=== PATIENT | female | born 1955 | race Caucasian/White ===

== ENCOUNTER 2018-10-02 23:30 | Inpatient (IN) | payer MEDICAID ==
[~2018-10-02] VITALS: Ht 162.6 cm; Wt 86.2 kg
[~2018-10-02 23:30] MED LIST: ALLO100T PO; ALPR0.25 PO; ASPI-864 PO; ASPIRIN PO; CARV6.2548 PO; CARVEDILOL PO; COLC0.6T2 PO; HUMALOG SUBCUT; INSLAN SQ; LACT10SO PO; LASIX PO; SIMV20TA6 PO; XALAO LEFTEYE
[2018-10-03] MEDS ORDERED: ONDANSETRON HCL 4MG/2ML INJ IV STA (00:04)
[2018-10-03] MEDS ORDERED: MORPHINE SULFATE 4 MG/ML CPJ (NOT FOR IM USE) IV STA (00:04)
[2018-10-03 00:28] LABS: BASOPHILS % 0.7 % (0.0-2.0); EOSINOPHILS % 5.1 % (0.0-5.0); HEMATOCRIT. 36.5 % (36.0-48.0); HEMOGLOBIN. 11.9 g/dL (12.0-16.0); LYMPHOCYTES % 18.9 % (20.0-50.0); MEAN CORPUSCULAR HEMOGLOBIN 31.5 pg (28.0-32.0); MEAN PLATELET VOLUME 8.6 fl (7.4-10.4); MONOCYTES % 7.4 % (2.0-8.0); NEUTROPHILS % 67.9 % (40.0-76.0); PLATELET 226 x1000/uL (130-400); RED BLOOD CELL COUNT 3.76 mill/uL (4.2-5.4); RED CELL DISTRIBUTION WIDTH 15.7 % (11.6-14.6)
[2018-10-03 00:33] LABS: CHLORIDE 112 mEq/L (98-107)
[2018-10-03 00:57] LABS: CLARITY URINE CLEAR (CLEAR); COLOR URINE YELLOW (YELLOW); KETONES URINE NEGATIVE (NEGATIVE); LEUKOCYTE ESTERASE URINE TRACE (NEGATIVE); NITRITE URINE NEGATIVE (NEGATIVE); OCCULT BLOOD URINE NEGATIVE (NEGATIVE); PROTEIN URINE NEGATIVE (NEGATIVE); SPECIFIC GRAVITY URINE 1.009 (1.005-1.030); UROBILINOGEN URINE 0.2 E.U./dL (0.2-1.0)
[2018-10-03] MEDS ORDERED: SODIUM CHLORIDE 0.9% 1,000 ML IV NR (01:00)
[2018-10-03] MEDS ORDERED: LOSA50TA20 MT (09:55)
[2018-10-03] MEDS ORDERED: OMEP20CA10 MT (09:55)
[2018-10-03 10:24] VITALS: BP 119/48
[2018-10-03 12:00] VITALS: BP 128/53
[2018-10-03] MEDS ORDERED: REGADENOSON 0.4 MG/5 ML IV NR (12:15)
[2018-10-03] MEDS: ASPIRIN 81MG EC TABLET PO SCH (13:09)
[2018-10-03] MEDS: ENOXAPARIN 30MG/0.3ML SYR SUBCUT SCH (13:09)
[2018-10-03] MEDS: CLOPIDOGREL 75MG TABLET PO SCH (13:09)
[2018-10-03] MEDS ORDERED: DEXTROSE 50% WATER 50ML SYRINGE IV PRN (15:15)
[2018-10-03] MEDS ORDERED: ONDANSETRON HCL 4MG/2ML INJ IV PRN (15:15)
[2018-10-03 15:45] VITALS: BP 118/57
[2018-10-03] MEDS: OMEPRAZOLE 20MG CAPSULE EXTENDED RELEASE PO SCH (16:41)
[2018-10-03] MEDS: INSULIN LISPRO 100 UNITS/ML SUBCUT SCH ×3 (16:46→21:00)
[2018-10-03] MEDS: BLOOD SUGAR DIAGNOSTIC STRIP TEST SCH ×2 (16:46→21:22)
[2018-10-03 18:43] LABS: PHOSPHORUS 3.4 mg/dL (2.5-4.9)
[2018-10-03 18:44] LABS: LDL CHOLESTEROL 49 mg/dL (5-100)
[2018-10-03 18:45] LABS: CREATINE KINASE 68 IU/L (26-192); TOTAL IRON BINDING CAPACITY 285 ug/dL (250-450)
[2018-10-03 18:46] LABS: HDL CHOLESTEROL 39 mg/dL (40-59)
[2018-10-03 18:47] LABS: CREATINE KINASE MB FRACTION < 1.0 ng/mL (0.5-3.6)
[2018-10-03 18:55] LABS: FOLIC ACID (FOLATE) SERUM >20 ng/mL ng/mL (>5.38)
[2018-10-03 19:06] LABS: VITAMIN B12 SERUM < 60 pg/mL (211-911)
[2018-10-03 20:00] VITALS: BP 136/66
[2018-10-03] MEDS ORDERED: MORPHINE SULFATE 4 MG/ML CPJ (NOT FOR IM USE) IV PRN (20:36)
[2018-10-03] MEDS ORDERED: LATANOPROST 0.005% OPHTH DROPS 2.5ML LEFTEYE SCH (21:00)
[2018-10-03] MEDS ORDERED: ATORVASTATIN CALCIUM 40MG TABLET PO SCH (21:00)
[2018-10-03] MEDS: FUROSEMIDE 20MG TABLET PO SCH (21:32)
[2018-10-03] MEDS: INSULIN GLARGINE UD 100 UNITS/ML SYR SUBCUT SCH (21:32)
[2018-10-04] VITALS: BP 108/46
[2018-10-04 01:19] LABS: *AMPHETAMINES SCREEN URINE NEGATIVE (NEGATIVE); *BARBITURATES SCREEN URINE NEGATIVE (NEGATIVE); *BENZODIAZEPINES SCREEN URINE NEGATIVE (NEGATIVE); *COCAINE SCREEN URINE NEGATIVE (NEGATIVE); METHADONE URINE SCREEN NEGATIVE (NEGATIVE); OPIATES URINE SCREEN PRESUMTIVE POSITIVE (NEGATIVE)
[2018-10-04 01:20] LABS: CANNABINOID URINE SCREEN NEGATIVE (NEGATIVE); PHENCYCLIDINE URINE SCREEN NEGATIVE (NEGATIVE)
[2018-10-04 04:00] VITALS: BP 126/51
[2018-10-04] MEDS: INSULIN LISPRO 100 UNITS/ML SUBCUT SCH ×4 (06:17→12:20)
[2018-10-04] MEDS: OMEPRAZOLE 20MG CAPSULE EXTENDED RELEASE PO SCH (06:17)
[2018-10-04] MEDS: BLOOD SUGAR DIAGNOSTIC STRIP TEST SCH ×2 (06:17→11:46)
[2018-10-04 06:23] LABS: BASOPHILS % 0.7 % (0.0-2.0); EOSINOPHILS % 5.6 % (0.0-5.0); HEMOGLOBIN. 11.7 g/dL (12.0-16.0); LYMPHOCYTES % 25.4 % (20.0-50.0); MEAN CORPUSCULAR HEMOGLOBIN 31.6 pg (28.0-32.0); MEAN CORPUSCULAR VOLUME 96.9 fL (81.0-99.0); MONOCYTES % 7.5 % (2.0-8.0); NEUTROPHILS % 60.8 % (40.0-76.0); PLATELET 231 x1000/uL (130-400); RED BLOOD CELL COUNT 3.72 mill/uL (4.2-5.4); RED CELL DISTRIBUTION WIDTH 15.4 % (11.6-14.6)
[2018-10-04 08:00] VITALS: BP 135/67
[2018-10-04] MEDS ORDERED: REGADENOSON 0.4 MG/5 ML IV ONE (09:22)
[2018-10-04] MEDS: FUROSEMIDE 20MG TABLET PO SCH (10:37)
[2018-10-04] MEDS: ASPIRIN 81MG EC TABLET PO SCH (10:37)
[2018-10-04] MEDS: CLOPIDOGREL 75MG TABLET PO SCH (10:37)
[2018-10-04] MEDS: INSULIN GLARGINE UD 100 UNITS/ML SYR SUBCUT SCH (10:47)
[2018-10-04] MEDS: ENOXAPARIN 30MG/0.3ML SYR SUBCUT SCH (12:20)
[2018-10-04] MEDS ORDERED: LACTULOSE 20G/30ML UDC PO PRN (12:30)
[2018-10-04] MEDS ORDERED: ACETAMINOPHEN 325MG TABLET PO PRN (12:30)
[2018-10-04 13:52] VITALS: BP 130/65
[2018-10-05 14:44] LABS: FERRITIN 79 ng/mL (10-291)
== END 2018-10-04 14:25 | disposition home or self-care (01) | DRG 243 ==
LOC: ER 23:40 → 8WST 10-03 01:07 → ENRESERV 10-03 07:56
PROVIDERS: ADMIT Internal Medicine; ATTEND Internal Medicine
DX: K21.9 Gastro-esophageal reflux disease without esophagitis (principal); D72.1 Eosinophilia; E11.22 Type 2 diabetes mellitus with diabetic chronic kidney disease; I50.9 Heart failure, unspecified; I13.0 Hypertensive heart and chronic kidney disease with heart failure and stage 1 through stage 4 chronic kidney disease, or unspecified chronic kidney disease; N18.4 Chronic kidney disease, stage 4 (severe); I48.0 Paroxysmal atrial fibrillation; I25.118 Atherosclerotic heart disease of native coronary artery with other forms of angina pectoris; D64.9 Anemia, unspecified; N20.0 Calculus of kidney; E78.5 Hyperlipidemia, unspecified; K42.9 Umbilical hernia without obstruction or gangrene; I25.2 Old myocardial infarction; Z79.4 Long term (current) use of insulin; Z79.82 Long term (current) use of aspirin; I69.354 Hemiplegia and hemiparesis following cerebral infarction affecting left non-dominant side; Z95.1 Presence of aortocoronary bypass graft; Z79.899 Other long term (current) drug therapy; Z82.49 Family history of ischemic heart disease and other diseases of the circulatory system; Z83.3 Family history of diabetes mellitus; Z90.49 Acquired absence of other specified parts of digestive tract
CPT/HCPCS: 36415; 74176; 78452; 80048; 80061; 80305; 82550; 82553; 82607; 82728; 82746; 82962; 83036; 83540; 83550; 83605; 83735; 84100; 84443; 84484; 93005; 93017; 96361; 96374; 96375; 99285; A9500; C1893; J1650; J1815; J2270; J2405; J2785